=== PATIENT | male | born 1955 | race Caucasian/White ===

== ENCOUNTER 2022-03-17 07:31 | Inpatient (IN) | payer MEDICAID, OTHER ==
[~2022-03-17] VITALS: Ht 167.6 cm; Wt 59.0 kg
--- NOTE | 2022-03-17 07:59 | NUR ---
Patient came in to the er c/o LLQ pain x few days 06/23 ps. On room air, breathing evenly and unlabored. Connected to the monitor and pulse ox. kept comfortable, will continue to monitor accordingly.
[2022-03-17 08:06] LABS: BASOPHILS % (AUTO) 0.5 % (0.0-2.0); EOSINOPHILS % (AUTO) 2.6 % (0.0-6.0); HEMATOCRIT 43 % (39-51); HEMOGLOBIN 14.4 g/dL (13.5-17.5); LYMPHOCYTES # (AUTO) 1.4 K/uL (0.8-4.8); LYMPHOCYTES % (AUTO) 21.8 % (20.0-44.0); MEAN CORPUSCULAR HGB CONC 33 g/dl (31.0-36.0); MEAN CORPUSCULAR VOLUME 86 fL (80-96); MONOCYTES # (AUTO) 0.5 K/uL (0.1-1.30); MONOCYTES % (AUTO) 7.2 % (2.0-12.0); NEUTROPHILS # (AUTO) 4.5 K/uL (1.8-8.9); NEUTROPHILS % (AUTO) 67.9 % (43.0-81.0); PLATELET COUNT (AUTO) 258 K/uL (150-450); RED BLOOD CELL COUNT(AUTO) 5.01 MIL/uL (4.5-6.0); WHITE BLOOD COUNT (AUTO) 6.6 K/uL (4.3-11.0)
[2022-03-17 08:15] LABS: CREATININE 1.4 mg/dL (0.6-1.3); POTASSIUM 3.7 mmol/L (3.5-5.1)
[2022-03-17] MEDS ORDERED: MORPHINE SULFATE INJ 4 MG/ML DISP.SYRIN ONE (08:22)
--- NOTE | 2022-03-17 08:25 | NUR ---
urine colelcted and sent to lab.
[2022-03-17] MEDS ORDERED: MORPHINE SULFATE INJ 2 MG/ML DISP.SYRIN IV ONE ×2 (08:30→11:00)
[2022-03-17 08:31] LABS: BILIRUBIN,DIRECT 0.1 mg/dL (0.0-0.2); BILIRUBIN,TOTAL 0.6 mg/dL (0.2-1.0)
[2022-03-17 08:32] LABS: ALBUMIN 3.7 g/dL (3.4-5.0); TOTAL PROTEIN, SERUM 7.6 g/dL (6.4-8.2)
--- NOTE | 2022-03-17 08:52 | NUR ---
PT BACK FROM RADIOLOGY
[2022-03-17 08:55] LABS: BILIRUBIN,URINE NEGATIVE (NEGATIVE); COLOR,URINE YELLOW (YELLOW); LEUKOCYTE ESTERASE ,URINE SMALL (NEGATIVE); NITRITE, URINE NEGATIVE (NEGATIVE); PH,URINE 6.5 (5.0-8.0); PROTEIN,URINE TRACE mg/dl (NEGATIVE); UGLUCOSE NEGATIVE (NEGATIVE); UROBILINOGEN,URINE 0.2 EU/dL (0.2)
[2022-03-17 09:06] LABS: RBC,URINE 21-50 /HPF (0-2)
[2022-03-17 09:08] LABS: BACTERIA,URINE None seen /HPF (None Seen); CALCIUM OXALATE CRYSTALS,UR Few /HPF (None Seen); SQUAMOUS EPITHELIAL CELL,UR 0-2 /HPF (None Seen)
--- NOTE | 2022-03-17 09:53 | NUR ---
Ho mccarty in [facility] - 03/17/22 at 0957 by LEONIDES MORGAN GOMEZ AWAITING A CALL BACK TO SPEAK TO DR. ESTRADA
[2022-03-17] MEDS ORDERED: HYDR-3980 PO (10:14)
[2022-03-17] MEDS ORDERED: MORPHINE SULFATE INJ 2 MG/ML DISP.SYRIN ONE (10:58)
--- NOTE | 2022-03-17 11:24 | NUR ---
CALLED NURSING SUP REGARDING PT BED
[2022-03-17] MEDS ORDERED: PIPERACILLIN /TAZOBACTAM 3.375 G in IV D5W 50 ML IV ONE (11:30)
--- NOTE | 2022-03-17 12:14 | NUR ---
COVID SWAB COLLECTED AND SENT TO LAB
--- NOTE | 2022-03-17 12:34 | NUR ---
ROOM 325-1
[2022-03-17] MEDS ORDERED: ONDANSETRON HCL/PF 4 MG/2 ML VIAL IVP PRN (13:00)
[2022-03-17] MEDS ORDERED: MAG HYDROX/AL HYDROX/SIMETH 30 ML UDC PO PRN (13:00)
[2022-03-17] MEDS ORDERED: ACETAMINOPHEN 325 MG TABLET PO PRN (13:00)
[2022-03-17] MEDS ORDERED: Z GUARD REMEDY 4 OZ OINT TP PRN (13:00)
[2022-03-17] MEDS ORDERED: IV NS 0.9% 1,000 ML IV ONE (13:00)
--- NOTE | 2022-03-17 13:29 | NUR ---
Report given to Jennifer AMAYA to continue care.
[2022-03-17 14:46] VITALS: BP 142/75
--- NOTE | 2022-03-17 15:10 | NUR ---
RN note Patient was admitted to the room 325 bed 2 from ER, alert , oriented times 3,on room air , breathing un labored no sighs of distress. Patient c/o lintel pain of the left and right side of the abdomen .Patient has LFA saline lock 20 g , running with 100 ml of the NS freely.Patient is ambulatory , bowel and urine continent , after midnight will be NPO due to surgical procidure scheduled tomorrow.
[2022-03-17 16:00] VITALS: BP 143/76
[2022-03-17] MEDS: PIPERACILLIN /TAZOBACTAM 3.375 G in IV D5W 50 ML IV SCH ×2 (17:23→23:42)
--- NOTE | 2022-03-17 18:31 | NUR ---
RN closing note Patient is in bed , on room air , breathing un labored , no sighs of distress, has IV access of the left FA 20 gait with NS running at 100 ml/hr . Patient dines any pain or discomfort at this time , after the mid night will be NPO due to surgical procedure scheduled for tomorrow .Patient is urine and bowel continent , ambulates to the restroom. All medications were administered , all needs are met .Bed is at lowest position , bed side rails are up , call light within reach
--- NOTE | 2022-03-17 19:20 | NUR ---
MS RN OPENING NOTE PATIENT AWAKE IN BED, ALERT/ORIENTED X 4, PT ABLE TO MAKE NEEDS KNOWN. PT STABLE ON RA, NO S/S OF DISTRESS OR SOB NOTED, BREATHING EVEN AND UNLABORED. IV ACCESS ON LAC #20G INTACT AND INFUSING NS @ 100 ML/HR. PATIENT TO BE NPO POST MIDNIGHT FOR SURGERY TOMORROW, PT VERBALIZED UNDERSTANDING. PER DAYSHIFT NURSE, PT IS AMBULATORY WITH [facility]. SAFETY MEASURES IN PLACE: CALL LIGHT WITHIN REACH, SIDE RAILS UP X 2, BED LOCKED IN LOWEST POSITION, HOB ELEVATED. WILL CONTINUE TO MONITOR PATIENT
[2022-03-17] MEDS: MORPHINE SULFATE INJ 2 MG/ML DISP.SYRIN IV PRN ×2 (19:54→23:58)
--- NOTE | 2022-03-17 19:55 | NUR ---
MS RN NOTE PATIENT REPORTING 8/10 ABDOMINAL PAIN. MORPHINE 2 MG IV GIVEN ORDERED, VITAL SIGNS WNL. WILL CONTINUE TO MONITOR PATIENT
[2022-03-17] MEDS ORDERED: MAGNESIUM HYDROXIDE 30 ML UDC PO PRN (22:00)
[2022-03-17] MEDS ORDERED: ZOLPIDEM TARTRATE 5 MG TABLET PO PRN (22:00)
--- NOTE | 2022-03-18 00:07 | NUR ---
MS RN NOTE PATIENT REPORTING 10/10 LEFT ABDOMEN SHARP PAIN. MORPHINE 2 MG IV GIVEN ORDERED. WILL CONTINUE TO MONITOR PATIENT
[2022-03-18] MEDS: PIPERACILLIN /TAZOBACTAM 3.375 G in IV D5W 50 ML IV SCH ×3 (06:10→17:27)
[2022-03-18 06:18] LABS: BASOPHILS % (AUTO) 0.6 % (0.0-2.0); EOSINOPHILS % (AUTO) 3.5 % (0.0-6.0); HEMATOCRIT 39 % (39-51); HEMOGLOBIN 13.3 g/dL (13.5-17.5); LYMPHOCYTES % (AUTO) 17.1 % (20.0-44.0); MEAN CORPUSCULAR HGB CONC 34 g/dl (31.0-36.0); MEAN CORPUSCULAR VOLUME 86 fL (80-96); MONOCYTES # (AUTO) 0.4 K/uL (0.1-1.30); MONOCYTES % (AUTO) 7.3 % (2.0-12.0); NEUTROPHILS # (AUTO) 4.2 K/uL (1.8-8.9); NEUTROPHILS % (AUTO) 71.5 % (43.0-81.0); PLATELET COUNT (AUTO) 190 K/uL (150-450); RED BLOOD CELL COUNT(AUTO) 4.56 MIL/uL (4.5-6.0); WHITE BLOOD COUNT (AUTO) 5.8 K/uL (4.3-11.0)
[2022-03-18] MEDS: MORPHINE SULFATE INJ 2 MG/ML DISP.SYRIN IV PRN ×3 (06:20→15:40)
[2022-03-18 06:45] LABS: CALCIUM, SERUM 8.5 mg/dL (8.5-10.1); CREATININE 1.1 mg/dL (0.6-1.3); MAGNESIUM 1.8 mg/dL (1.8-2.4); PHOSPHORUS 3.4 mg/dL (2.5-4.9); POTASSIUM 3.7 mmol/L (3.5-5.1)
--- NOTE | 2022-03-18 07:27 | NUR ---
MS RN CLOSING NOTE PATIENT AWAKE IN BED, ALERT/ORIENTED X 4, PT ABLE TO MAKE NEEDS KNOWN. PT STABLE ON RA, NO S/S OF DISTRESS OR SOB NOTED, BREATHING EVEN AND UNLABORED. IV ACCESS ON LAC #20G INTACT AND SALINE LOCKED. PATIENT NPO SINCE MIDNIGHT FOR SURGERY TODAY, PT VERBALIZED UNDERSTANDING. MEDICATIONS GIVEN ORDERED, PT NEEDS MET THROUGHOUT SHIFT. SAFETY MEASURES IN PLACE: CALL LIGHT WITHIN REACH, SIDE RAILS UP X 2, BED LOCKED IN LOWEST POSITION, HOB ELEVATED. ENDORSED TO DAYSHIFT NURSE FOR CONTINUITY OF CARE
--- NOTE | 2022-03-18 07:30 | NUR ---
MS RN OPENING NOTES RECEIVED PATIENT LYING COMFORTABLY IN BED, SLEEPING. PATIENT IS ALERT/ORIENTED X 4. PT STABLE ON RA, BREATHING EVEN AND UNLABORED., AND NO S/S OF DISTRESS OR SOB AT THIS MOMENT. IV ACCESS ON LAC #20G INTACT AND SALINE LOCKED. PATIENT IS SCHEDULED FOR SURGERY AND HE IS NPO SINCE MIDNIGHT. SAFETY MEASURES IN PLACE: CALL LIGHT WITHIN REACH, SIDE RAILS UP X 2, BED LOCKED IN LOWEST POSITION, HOB ELEVATED. WILL CONTINUE TO MONITOR FOR CONTINUITY OF CARE.
[2022-03-18 08:00] VITALS: BP 134/85
[2022-03-18 12:00] VITALS: BP 126/85
--- NOTE | 2022-03-18 18:24 | NUR ---
MS RN NURSING NOTES PATIENT CAME BACK FROM OR @1824, AND THEY CANCELLED THE SCHEDULED SURGERY. WAITING FOR ANY FURTHER ORDERS FROM THE MD.
--- NOTE | 2022-03-18 18:43 | NUR ---
MS RN CLOSING NOTES PATIENT LYING COMFORTABLY IN BED, SLEEPING. PATIENT IS ALERT/ORIENTED X 4. PT STABLE ON RA, BREATHING EVEN AND UNLABORED., AND NO S/S OF DISTRESS OR SOB AT THIS MOMENT. IV ACCESS ON LAC #20G INTACT AND SALINE LOCKED. PATIENT SCHEDULED SURGERY WAS CANCELLED, AND WAITING FOR ANY FURTHER DRAshley'S ORDERS. SAFETY MEASURES IN PLACE: CALL LIGHT WITHIN REACH, SIDE RAILS UP X 2, BED LOCKED IN LOWEST POSITION, HOB ELEVATED. WILL CONTINUE TO MONITOR FOR CONTINUITY OF CARE.
--- NOTE | 2022-03-18 20:28 | NUR ---
MS RN NOTE PATIENT LEFT AGAINST [facility]. EXPLAINED RISK AND BENEFITS TO PATIENT AND ATTEMPTED TO CONVINCE PATIENT TO STAY HOWEVER PATIENT REFUSED. LEFT AC IV ACCESS REMOVED INTACT, MINIMAL BLEEDING. REMOVED ARM BAND. PATIENT SIGNED AMA FORM. ALL BELONGINGS TAKEN WITH PATIENT.
== END 2022-03-18 20:30 | disposition left against medical advice (07) | DRG 254 ==
LOC: ER 07:35 → TRANSITION 11:22 → MED 12:35
PROVIDERS: ADMIT Family Medicine; ATTEND Student in an Organized Health Care Education/Training Program
DX: K61.1 Rectal abscess (principal); N17.0 Acute kidney failure with tubular necrosis; N39.0 Urinary tract infection, site not specified; Z20.822 Contact with and (suspected) exposure to COVID-19; Z87.442 Personal history of urinary calculi; N20.0 Calculus of kidney; K57.90 Diverticulosis of intestine, part unspecified, without perforation or abscess without bleeding; N40.0 Benign prostatic hyperplasia without lower urinary tract symptoms
CPT/HCPCS: 36415; 80048-TC; 80061-TC; 80076-TC; 81001; 83690-TC; 83735-TC; 84100-TC; 85025-TC; 85610-TC; 87081-TC; 87086-TC; G0378; J1100; J2270; J2405; J2543; J2704; J3490; J7030; J7060

== ENCOUNTER 2023-12-11 01:16 | Inpatient (IN) | payer MEDICARE, OTHER ==
[~2023-12-11] VITALS: Ht 170.2 cm; Wt 63.5 kg
[~2023-12-11 01:16] MED LIST: HYDR-3980 PO
[2023-12-11] MEDS ORDERED: MORPHINE SULFATE INJ 4 MG/ML DISP.SYRIN ONE (02:14)
[2023-12-11] MEDS ORDERED: ONDANSETRON HCL/PF 4 MG/2 ML VIAL ONE (02:14)
[2023-12-11] MEDS: IV NS 0.9% 1,000 ML BAG IV ONE (02:15)
[2023-12-11] MEDS: MORPHINE SULFATE INJ 2 MG/ML DISP.SYRIN IV ONE (02:15)
[2023-12-11] MEDS: ONDANSETRON HCL/PF 4 MG/2 ML VIAL IVP ONE (02:15)
[2023-12-11 02:32] LABS: BASOPHILS % (AUTO) 0.2 % (0.0-2.0); EOSINOPHILS % (AUTO) 0.2 % (0.0-6.0); HEMATOCRIT 55 % (39-51); HEMOGLOBIN 18.7 g/dL (13.5-17.5); LYMPHOCYTES # (AUTO) 0.9 K/uL (0.8-4.8); LYMPHOCYTES % (AUTO) 9.2 % (20.0-44.0); MEAN CORPUSCULAR HEMOGLOBIN 30 PG (26.0-33.0); MEAN CORPUSCULAR HGB CONC 34 g/dl (31.0-36.0); MEAN CORPUSCULAR VOLUME 89 fL (80-96); MONOCYTES # (AUTO) 0.5 K/uL (0.1-1.30); MONOCYTES % (AUTO) 4.9 % (2.0-12.0); NEUTROPHILS # (AUTO) 8.3 K/uL (1.8-8.9); NEUTROPHILS % (AUTO) 85.5 % (43.0-81.0); PLATELET COUNT (AUTO) 255 K/uL (150-450); RED BLOOD CELL COUNT(AUTO) 6.23 MIL/uL (4.5-6.0); RED CELL DISTRIBUTION WIDTH 15.3 % (11.5-15.0); WHITE BLOOD COUNT (AUTO) 9.7 K/uL (4.3-11.0)
[2023-12-11 02:34] LABS: CALCIUM, SERUM 9.6 mg/dL (8.5-10.1); CARBON DIOXIDE 21 mmol/L (21-32); CHLORIDE 100 mmol/L (98-107); CREATININE 1.6 mg/dL (0.6-1.3); GLUCOSE 209 mg/dL (74-106); POTASSIUM 3.8 mmol/L (3.5-5.1); SODIUM SERUM 135 mmol/L (136-145); UREA NITROGEN, BLOOD 19 mg/dL (7-18)
[2023-12-11 02:37] LABS: INR 1.12 (0.91-1.10); PARTIAL THROMBOPLASTIN TIME 26.8 SEC (24.3-34.3); PROTHROMBIN TIME 11.8 SECS (9.2-11.1)
[2023-12-11 02:40] LABS: ALANINE AMINOTRANSFERASE 13 U/L (12-78); ALBUMIN 3.5 g/dL (3.4-5.0); ALKALINE PHOSPHATASE 101 U/L (46-116); ASPARTATE AMINOTRANSFERASE 12 U/L (15-37); BILIRUBIN,DIRECT 0.2 mg/dL (0.0-0.2); BILIRUBIN,TOTAL 1.1 mg/dL (0.2-1.0); LIPASE 39 U/L (16-77); TOTAL PROTEIN, SERUM 7.7 g/dL (6.4-8.2)
[2023-12-11] MEDS: ASPIRIN 325 MG TABLET PO ONE (03:32)
[2023-12-11] MEDS ORDERED: ASPIRIN 325 MG TABLET ONE (03:32)
[2023-12-11 03:49] LABS: APPEARANCE,URINE CLEAR (CLEAR); BILIRUBIN,URINE 1+ (NEGATIVE); BLOOD, URINE NEGATIVE Ery/uL (NEGATIVE); COLOR,URINE YELLOW (YELLOW); KETONES,URINE TRACE mg/dL (NEGATIVE); LEUKOCYTE ESTERASE ,URINE NEGATIVE (NEGATIVE); NITRITE, URINE NEGATIVE (NEGATIVE); PROTEIN,URINE 1+ mg/dl (NEGATIVE); UGLUCOSE NEGATIVE (NEGATIVE); UROBILINOGEN,URINE 0.2 EU/dL (0.2)
[2023-12-11] MEDS ORDERED: hydrALAZINE HCL IV 20 MG VIAL IV PRN (04:00)
[2023-12-11] MEDS ORDERED: IV NS 0.9% 1,000 ML IV SCH (04:00)
[2023-12-11] MEDS ORDERED: ACETAMINOPHEN 325 MG TABLET PO PRN (04:00)
[2023-12-11] MEDS ORDERED: CEFEPIME 2 GM in IV D5W 100 ML IV SCH (04:30)
[2023-12-11 07:00] VITALS: BP 116/75; TEMP 99; O2SAT 97
[2023-12-11] MEDS: MORPHINE SULFATE INJ 2 MG/ML DISP.SYRIN IV PRN (07:50)
[2023-12-11] MEDS ORDERED: IBUP-2715 PO (08:16)
[2023-12-11 09:00] VITALS: BP 116/75; TEMP 99; O2SAT 97
[2023-12-11] MEDS: DOCUSATE SODIUM LIQ 100 MG/10 ML UDC PO SCH (09:00)
[2023-12-11] MEDS ORDERED: HEPARIN SODIUM, PORCINE 5000 UNITS/1 ML VIAL SQ SCH (09:00)
[2023-12-11] MEDS: POLYETHYLENE GLYCOL 3350 17 GM POWD.PACK PO SCH (09:00)
[2023-12-11] MEDS: CEFEPIME 2 GM in IV D5W 100 ML IV SCH (09:09)
[2023-12-11] MEDS ORDERED: IV NS 0.9% 1,000 ML IV PRN (09:30)
[2023-12-11] MEDS: METOPROLOL TARTRATE 50 MG TABLET PO SCH (10:04)
[2023-12-11] MEDS: ASPIRIN 81 MG TAB.CHEW PO SCH (10:05)
[2023-12-11] MEDS: HEPARIN SODIUM, PORCINE 5000 UNITS/1 ML VIAL IV ONE (11:09)
[2023-12-11] MEDS: HEPARIN INFUSION/D5W 500 ML IV PRN (11:10)
[2023-12-11 12:00] VITALS: BP 127/70; TEMP 98.6; O2SAT 97; O2SAT 98
[2023-12-11] MEDS: ONDANSETRON HCL/PF 4 MG/2 ML VIAL IVP PRN (12:26)
[2023-12-11 13:00] VITALS: BP 127/70; TEMP 98.6; O2SAT 98
[2023-12-11 16:07] VITALS: BP 145/90; TEMP 98.8; O2SAT 95
== END 2023-12-11 16:30 | disposition left against medical advice (07) | DRG 391 ==
LOC: ER 01:27 → TELE 04:47
DX: K20.90 Esophagitis, unspecified without bleeding (principal); I21.A1 Myocardial infarction type 2; N10 Acute pyelonephritis; N17.9 Acute kidney failure, unspecified; L27.0 Generalized skin eruption due to drugs and medicaments taken internally; Z98.890 Other specified postprocedural states; D75.1 Secondary polycythemia; K57.90 Diverticulosis of intestine, part unspecified, without perforation or abscess without bleeding; N20.0 Calculus of kidney; N40.0 Benign prostatic hyperplasia without lower urinary tract symptoms; Z87.442 Personal history of urinary calculi; T50.905A Adverse effect of unspecified drugs, medicaments and biological substances, initial encounter; T41.45XA Adverse effect of unspecified anesthetic, initial encounter; Y92.531 Health care provider office as the place of occurrence of the external cause
CPT/HCPCS: 36415; 71045-TC; 80048-TC; 80076-TC; 83690-TC; 84484-TC; 85025-TC; 85730-TC; 93307-TC; A4223; G0378; J0692; J1644; J2270; J2405; J7030; J7060